=== PATIENT | female | born 1960 | race Hispanic/Latino ===

== ENCOUNTER → 2023-11-08 | Outpatient (CLI) | payer BC | END | disposition home or self-care (01) | LOC: RAH 12:00 | PROVIDERS: ATTEND Internal Medicine Cardiovascular Disease | DX: R06.02 Shortness of breath (principal) | CPT/HCPCS: 93306 ==

== ENCOUNTER 2023-11-26 11:33 | Inpatient (IN) | payer BC ==
[2023-11-26] VITALS (35 sets, daily range): BP systolic 95–178; BP diastolic 37–116; PULSE 59–105; RESP 18–36; TEMP 98.9–99.9; O2SAT 96–98
[~2023-11-26] VITALS: Ht 152.4 cm; Wt 151.0 kg
[2023-11-26] MEDS: levoFLOXacin 500 MG/D5W 100 ML 100 ML IV ONE (11:53)
[2023-11-26] MEDS: 0.9%NACL 1000ML 1,365 ML IV ONE (11:53)
[2023-11-26 12:06] LABS: BASOPHILS # (AUTO) 0.05 K/uL (0.00-0.20); BASOPHILS % (AUTO) 0.3 % (0.0-5.0); EOSINOPHILS # (AUTO) 0.05 K/uL (0.00-0.70); EOSINOPHILS % (AUTO) 0.3 % (0.0-8.0); HEMATOCRIT 30.7 % (36-48); IMMATURE GRANULOCYTE ABSOLUTE 0.26 K/uL (0-1); LYMPHOCYTES # (AUTO) 0.3 K/uL (1.0-4.8); LYMPHOCYTES % (AUTO) 1.8 % (21.0-51.0); MEAN CORPUSCULAR HEMOGLOBIN 25.1 pg (27.0-33.0); MEAN CORPUSCULAR HGB CONC 29.3 g/dL (32.0-36.0); MEAN CORPUSCULAR VOLUME 85.5 fL (79-99); MONOCYTES # (AUTO) 0.1 K/uL (0.1-1.0); MONOCYTES % (AUTO) 0.4 % (3.0-13.0); NEUTROPHILS # (AUTO) 18.6 K/uL (1.8-7.7); NEUTROPHILS % (AUTO) 95.9 % (40.0-77.0); PLATELET COUNT (AUTO) 222 K/uL (130-400); RED BLOOD CELL COUNT(AUTO) 3.59 MIL/uL (4.00-5.50); RED CELL DISTRIBUTION WIDTH 18.5 % (11.0-15.5); WHITE BLOOD COUNT (AUTO) 19.4 K/uL (4.8-10.8)
[2023-11-26 12:32] LABS: COVID19 (SARS ANTIGEN RAPID) PRESUMPTIVE NEGATIVE (NEGATIVE); INFLUENZA TYPE A Negative For Type A (NEGATIVE); INFLUENZA TYPE B Negative For Type B (NEGATIVE)
[2023-11-26] MEDS: NOREPINEPHRIN 4MG/NS 250ML 250 ML IV SCH (12:32)
[2023-11-26 12:34] LABS: CREATININE 3.6 mg/dL (0.5-1.0)
[2023-11-26 13:01] LABS: APPEARANCE,URINE CLEAR (CLEAR); BILIRUBIN,URINE NEGATIVE (NEGATIVE); COLOR,URINE YELLOW (YELLOW); GLUCOSE, URINE (UA) NEGATIVE (NEGATIVE); KETONES,URINE NEGATIVE (NEGATIVE); LEUKOCYTE ESTERASE ,URINE LARGE Leu/uL (NEGATIVE); NITRATE,URINE NEGATIVE (NEGATIVE); OCCULT BLOOD,URINE LARGE (NEGATIVE); PROTEIN,URINE 100 mg/dL (NEGATIVE); UROBILINOGEN,URINE 0.2 mg/dL (0.2-1.0)
[2023-11-26] MEDS: PoTASSium chl 10% ELIXIR 20MEQ 20 MEQ/15 ML UDCUP PO ONE (13:02)
[2023-11-26] MEDS: PoTASSium chloRIDE 20MEQ/100ML 100 ML IV ONE (13:03)
[2023-11-26] MEDS: fluCONazole 200 MG/NS 100 ML IV ONE (13:03)
[2023-11-26 13:06] LABS: ADD UA MICROSCOPIC YES
[2023-11-26 13:07] LABS: BACTERIA,URINE Moderate /HPF (None Seen); WBC,URINE TNTC /HPF (0-1)
[2023-11-26] MEDS: MEROPENEM 500 MG in 0.9%NACL 100ML 100 ML IV SCH (13:50)
[2023-11-26] MEDS: MEROPENEM 500 MG VIAL ONE (14:22)
[2023-11-26] MEDS ORDERED: MEROPENEM 500 MG VIAL IV SCH (14:30)
[2023-11-26] MEDS ORDERED: morPHINE 2 MG SYG IV PRN (14:30)
[2023-11-26] MEDS ORDERED: 0.9%NACL 1000ML 1,000 ML IV SCH (14:30)
[2023-11-26] MEDS ORDERED: acetaMINOPHEN 325 MG TAB PO PRN ×3 (14:30→15:30)
[2023-11-26 15:25] LABS: ABG BASE EXCESS -12.4 mmol/L (-2.0-3.0); ABG PCO2 25 mmHg (32-45); ABG PH 7.299 (7.350-7.450); DEVICE COMMENT RR MIKE; PO2, ARTERIAL BG 87.9 mmHg (83.0-108.0); VENT MODE, BG ROOM AIR (ROOM AIR)
[2023-11-26] MEDS ORDERED: ondanSETRON 4MG INJ IVP PRN (15:30)
[2023-11-26] MEDS: LACTATED RINGERS 1000ML 1,000 ML IV SCH (17:40)
[2023-11-26] MEDS: HEParin 5,000 UNIT VIAL SQ SCH (17:41)
[2023-11-26] MEDS: acetaMINOPHEN 325 MG TAB PO PRN (17:59)
[2023-11-26 18:49] LABS: ALBUMIN 1.7 g/dL (3.5-5.0); BILIRUBIN,TOTAL 0.4 mg/dL (0.2-1.0); CREATININE 3.3 mg/dL (0.5-1.0)
[2023-11-26 18:51] LABS: POTASSIUM 2.5 mmol/L (3.5-5.1)
[2023-11-26] MEDS: NOREPINEPHRINE BITARTRATE 32 MG in 0.9% NACL 250ML 250 ML IV SCH (19:20)
[2023-11-26] MEDS ORDERED: MELATONIN 5 MG TABLET PO PRN (19:30)
[2023-11-26] MEDS: FAMOTIDINE 20MG TAB PO SCH (19:55)
[2023-11-26] MEDS: ondanSETRON 4MG INJ IVP ONE (19:55)
[2023-11-26] MEDS: PoTASSium chloRIDE 20MEQ ER 20 MEQ ERTAB PO ONE ×2 (19:56→22:59)
[2023-11-26] MEDS: PoTASSium chloRIDE 10MEQ/100ML 100 ML IV ONE (19:56)
[2023-11-26] MEDS: MAGNESIUM 2GM PREMIX 50ML 50 ML IV SCH (19:57)
[2023-11-26 22:05] LABS: CREATININE 3.4 mg/dL (0.5-1.0); MAGNESIUM 1.5 mg/dL (1.80-2.40)
[2023-11-26 22:06] LABS: POTASSIUM 2.9 mmol/L (3.5-5.1)
[2023-11-26] MEDS ORDERED: SODI650T PO (22:40)
[2023-11-26] MEDS ORDERED: LEVO75CA5 PO (22:40)
[2023-11-26] MEDS ORDERED: GABA-529 PO (22:40)
[2023-11-26] MEDS ORDERED: DIPH-1150 PO (22:40)
[2023-11-26] MEDS ORDERED: ROPI2TAB53 PO (22:40)
[2023-11-26] MEDS ORDERED: FE F1CAP33 PO (22:40)
[2023-11-26] MEDS ORDERED: ESCI-8 PO (22:40)
[2023-11-27] VITALS (76 sets, daily range): BP systolic 92–147; BP diastolic 35–69; PULSE 55–86; RESP 19–40; TEMP 98.2–99.2; O2SAT 97–99
[2023-11-27 04:36] LABS: BASOPHILS # (AUTO) 0.12 K/uL (0.00-0.20); BASOPHILS % (AUTO) 0.3 % (0.0-5.0); EOSINOPHILS # (AUTO) 0.09 K/uL (0.00-0.70); EOSINOPHILS % (AUTO) 0.2 % (0.0-8.0); HEMATOCRIT 35.8 % (36-48); IMMATURE GRANULOCYTE ABSOLUTE 0.89 K/uL (0-1); LYMPHOCYTES # (AUTO) 0.9 K/uL (1.0-4.8); LYMPHOCYTES % (AUTO) 2.4 % (21.0-51.0); MEAN CORPUSCULAR HEMOGLOBIN 25.4 pg (27.0-33.0); MEAN CORPUSCULAR HGB CONC 30.2 g/dL (32.0-36.0); MEAN CORPUSCULAR VOLUME 84.2 fL (79-99); MONOCYTES # (AUTO) 0.8 K/uL (0.1-1.0); MONOCYTES % (AUTO) 2.1 % (3.0-13.0); NEUTROPHILS # (AUTO) 33.4 K/uL (1.8-7.7); NEUTROPHILS % (AUTO) 92.5 % (40.0-77.0); PLATELET COUNT (AUTO) 273 K/uL (130-400); RED BLOOD CELL COUNT(AUTO) 4.25 MIL/uL (4.00-5.50); RED CELL DISTRIBUTION WIDTH 18.7 % (11.0-15.5)
[2023-11-27 04:46] LABS: WHITE BLOOD COUNT (AUTO) 36.1 K/uL (4.8-10.8)
[2023-11-27 04:57] LABS: % IRON SATURATION 5.8 % (22-44); ALBUMIN 1.6 g/dL (3.5-5.0); BILIRUBIN,TOTAL 0.3 mg/dL (0.2-1.0); CREATININE 3.4 mg/dL (0.5-1.0); PHOSPHORUS 3.2 mg/dL (2.5-4.9)
[2023-11-27 05:22] LABS: POTASSIUM 2.9 mmol/L (3.5-5.1)
[2023-11-27] MEDS: PoTASSium chloRIDE 10MEQ/100ML 100 ML IV ONE (06:18)
[2023-11-27] MEDS: PoTASSium chloRIDE 20MEQ ER 20 MEQ ERTAB PO ONE (06:18)
[2023-11-27 06:27] LABS: LYMPHOCYTES % (MANUAL) 3 % (22-44); MONOCYTES % (MANUAL) 7 % (2-9); SEGMENTED NEUTROPHILS % 90 % (40-70); TOTAL CELLS COUNTED 100
[2023-11-27 06:28] LABS: MAN.DIFF COMMENT-IMPRESSION MANUAL DIFFERENTIAL; PLATELET MORPHOLOGY COMMENT ADEQUATE; WBC MORPHOLOGY NORMAL
[2023-11-27] MEDS ORDERED: ENOXAPARIN SODIUM 30 MG/0.3 ML SQ SCH (09:00)
[2023-11-27] MEDS: DOXYCYCLINE 100MG+NS 250ML 250 ML IV SCH (09:38)
[2023-11-27] MEDS: PoTASSium chloRIDE 20MEQ ER 20 MEQ ERTAB PO SCH (09:38)
[2023-11-27] MEDS: PANTOPrazole 40 MG/VIAL IVP SCH (09:40)
[2023-11-27] MEDS ORDERED: COMPOUND IV MISC 1 EACH IVSOLN MISC PRN (10:00)
[2023-11-27 10:31] LABS: CREATININE 3.5 mg/dL (0.5-1.0); POTASSIUM 3.5 mmol/L (3.5-5.1)
[2023-11-27] MEDS: EPOETIN ALFA-EPBX (NON-ESRD) 10,000 UNIT/ML VIAL SQ ONE (10:45)
[2023-11-27] MEDS: SODIUM BICARB 8.4% 50ML SYRING 150 MEQ in DEXTROSE 5%-WATER 1,000 ML IVP SCH (10:45)
[2023-11-27] MEDS: IRON sUCROse COMPLEX 300 MG in 0.9% NACL 250ML 250 ML IV ONE (11:36)
[2023-11-27 12:59] LABS: ABG BASE EXCESS -10.5 mmol/L (-2.0-3.0); ABG HCO3 13.6 mmol/L (21.0-28.0); ABG OXYGEN SATURATION 96.2 % (94.0-98.0); ABG PCO2 27 mmHg (32-45); ABG PH 7.327 (7.350-7.450); VENT MODE, BG RA (ROOM AIR)
[2023-11-27] MEDS: LACTATED RINGERS 1000ML 1,000 ML IV SCH (13:17)
[2023-11-27 15:26] LABS: CREATININE 3.4 mg/dL (0.5-1.0); POTASSIUM 3.4 mmol/L (3.5-5.1)
[2023-11-27] MEDS: MEROPENEM 500 MG in 0.9%NACL 100ML 100 ML IV SCH (15:55)
[2023-11-27] MEDS: GABApentin 100 MG CAPSULE PO PRN (16:35)
[2023-11-27] MEDS: LINEZOLID 600 MG/ISO-OSM 300 ML IV SCH (16:44)
[2023-11-27] MEDS: ondanSETRON 4MG INJ IV PRN (17:57)
[2023-11-27] MEDS: ropiNIRole HCL 1 MG TABLET PO SCH (20:51)
[2023-11-27] MEDS ORDERED: NON-FORMULARY MEDICATION 1 EACH (Ropinirole HCl 2 MG) PO SCH (21:00)
[2023-11-27 21:18] LABS: CREATININE 3.4 mg/dL (0.5-1.0); POTASSIUM 3.4 mmol/L (3.5-5.1)
[2023-11-28] VITALS (108 sets, daily range): BP systolic 87–143; BP diastolic 34–73; PULSE 51–67; RESP 12–93; TEMP 97.8–99.1; O2SAT 95–99
[2023-11-28] MEDS: PoTASSium chl 10% ELIXIR 20MEQ 20 MEQ/15 ML UDCUP PO ONE (03:21)
[2023-11-28 05:22] LABS: MEAN CORPUSCULAR HEMOGLOBIN 24.7 pg (27.0-33.0); MEAN CORPUSCULAR HGB CONC 29.4 g/dL (32.0-36.0); MEAN CORPUSCULAR VOLUME 84.2 fL (79-99); PLATELET COUNT (AUTO) 196 K/uL (130-400); RED BLOOD CELL COUNT(AUTO) 3.92 MIL/uL (4.00-5.50); RED CELL DISTRIBUTION WIDTH 18.9 % (11.0-15.5)
[2023-11-28 05:46] LABS: WHITE BLOOD COUNT (AUTO) 34.2 K/uL (4.8-10.8)
[2023-11-28 06:15] LABS: LYMPHOCYTES % (MANUAL) 2 % (22-44); MONOCYTES % (MANUAL) 1 % (2-9); SEGMENTED NEUTROPHILS % 97 % (40-70); TOTAL CELLS COUNTED 100
[2023-11-28 06:17] LABS: MAN.DIFF COMMENT-IMPRESSION MANUAL DIF; PLATELET MORPHOLOGY COMMENT ADEQUATE; WBC MORPHOLOGY NORMAL
[2023-11-28 06:50] LABS: ALBUMIN 1.4 g/dL (3.5-5.0); BILIRUBIN,TOTAL 0.3 mg/dL (0.2-1.0); CREATININE 3.5 mg/dL (0.5-1.0); MAGNESIUM 1.9 mg/dL (1.80-2.40); POTASSIUM 3.5 mmol/L (3.5-5.1); TOTAL PROTEIN, SERUM 5.6 g/dL (6.0-8.3)
[2023-11-28] MEDS: levoTHYROxine 75 MCG TABLET PO SCH (06:52)
[2023-11-28] MEDS ORDERED: NON-FORMULARY MEDICATION 1 EACH (Levothyroxine Sodium (Levothyroxine) 75 MCG) PO SCH (09:00)
[2023-11-28] MEDS ORDERED: polyETHYLene GLYCol 3350 17 GM POWD.PACK PO PRN (09:30)
[2023-11-28] MEDS: SIMETHICONE 80 MG TAB.CHEW PO PRN (10:30)
[2023-11-28] MEDS: tamSULOsin HCL 0.4 MG CAP.ER.24H PO SCH (10:38)
[2023-11-28] MEDS: miDODRine HCL 5 MG TABLET PO ONE (10:38)
[2023-11-28] MEDS ORDERED: DICYCLOMINE HCL 10 MG/5 ML ML PO ONE (11:00)
[2023-11-28] MEDS ORDERED: DICYCLOMINE 20MG (10MG/ML) AMP IM ONE (12:00)
[2023-11-28] MEDS: DICYCLOMINE HCL 20 MG TAB PO ONE (12:58)
[2023-11-28] MEDS: miDODRine HCL 5 MG TABLET PO SCH (14:39)
[2023-11-28 15:55] LABS: CREATININE 3.2 mg/dL (0.5-1.0)
[2023-11-28] MEDS: PoTASSium chloRIDE 20MEQ ER 20 MEQ ERTAB PO ONE (17:08)
[2023-11-28] MEDS: PoTASSium chloRIDE 10MEQ/100ML 100 ML IV PRN (17:13)
[2023-11-28] MEDS: metoCLOPRAmide 10 MG/2 ML VIAL IVP ONE (18:00)
[2023-11-28] MEDS: PoTASSium chloRIDE 20MEQ ER 20 MEQ ERTAB PO PRN (20:18)
[2023-11-28 20:41] LABS: CREATININE 3.3 mg/dL (0.5-1.0); POTASSIUM 3.2 mmol/L (3.5-5.1)
[2023-11-29] VITALS (113 sets, daily range): BP systolic 86–153; BP diastolic 40–111; PULSE 46–88; RESP 17–41; TEMP 98.1–99; O2SAT 91–100
[2023-11-29 03:53] LABS: BASOPHILS # (AUTO) 0.07 K/uL (0.00-0.20); BASOPHILS % (AUTO) 0.3 % (0.0-5.0); EOSINOPHILS # (AUTO) 0.58 K/uL (0.00-0.70); EOSINOPHILS % (AUTO) 2.1 % (0.0-8.0); HEMATOCRIT 29.6 % (36-48); IMMATURE GRANULOCYTE ABSOLUTE 1.42 K/uL (0-1); LYMPHOCYTES # (AUTO) 0.7 K/uL (1.0-4.8); LYMPHOCYTES % (AUTO) 2.6 % (21.0-51.0); MEAN CORPUSCULAR HEMOGLOBIN 24.6 pg (27.0-33.0); MEAN CORPUSCULAR HGB CONC 30.1 g/dL (32.0-36.0); MEAN CORPUSCULAR VOLUME 81.8 fL (79-99); MONOCYTES # (AUTO) 0.6 K/uL (0.1-1.0); MONOCYTES % (AUTO) 2.3 % (3.0-13.0); NEUTROPHILS # (AUTO) 23.8 K/uL (1.8-7.7); NEUTROPHILS % (AUTO) 87.5 % (40.0-77.0); PLATELET COUNT (AUTO) 164 K/uL (130-400); RED BLOOD CELL COUNT(AUTO) 3.62 MIL/uL (4.00-5.50); RED CELL DISTRIBUTION WIDTH 18.7 % (11.0-15.5); WHITE BLOOD COUNT (AUTO) 27.3 K/uL (4.8-10.8)
[2023-11-29 04:18] LABS: ALBUMIN 1.3 g/dL (3.5-5.0); BILIRUBIN,TOTAL 0.3 mg/dL (0.2-1.0); CREATININE 3.3 mg/dL (0.5-1.0); MAGNESIUM 2.3 mg/dL (1.80-2.40); PHOSPHORUS 2.4 mg/dL (2.5-4.9); POTASSIUM 3.5 mmol/L (3.5-5.1); THYROID STIMULATING HORMONE 0.75 uIU/mL (0.36-3.74); TOTAL PROTEIN, SERUM 5.4 g/dL (6.0-8.3)
[2023-11-29] MEDS: LACTATED RINGERS 1000ML IV ONE (09:37)
[2023-11-29] MEDS ORDERED: dexaMETHasone SOD PHOSPHATE 10MG/ML 1ML VIAL ONE ×2 (13:37→15:41)
[2023-11-29] MEDS ORDERED: LIDOCAINE HCL MPF 1% 5ML VIAL ONE (13:37)
[2023-11-29] MEDS ORDERED: rocuRONium bROMide 10MG/1ML 5ML VL ONE (13:38)
[2023-11-29] MEDS ORDERED: SUCCINYLCHOLINE CHLORIDE 20 MG/ML 10 ML VIAL ONE (13:38)
[2023-11-29] MEDS ORDERED: ondanSETRON 4MG INJ ONE ×2 (13:38→15:41)
[2023-11-29] MEDS ORDERED: MIDAZOLAM HCL 1 MG/ML 2ML VIAL ONE (13:38)
[2023-11-29] MEDS ORDERED: FENTanyl CITRate PF 50 MCG/1 ML 2ML VIAL ONE (13:39)
[2023-11-29] MEDS ORDERED: proPOFol 10 MG/ML 20ML VIAL IV ONE (13:39)
[2023-11-29] MEDS: MEROPENEM 500 MG VIAL IVPB ONE (15:35)
[2023-11-29] MEDS ORDERED: NEOSTIGMINE METHYLSULFATE 1MG/ML IV ONE (15:42)
[2023-11-29] MEDS ORDERED: GLYCOPYRROLATE 0.2 MG/ML 5 ML VIAL ONE (15:42)
[2023-11-29] MEDS ORDERED: IOHEXOL-350 50ML VIAL IV ONE (16:34)
[2023-11-29] MEDS: furoSEMIDE 20MG VIAL IV ONE (17:02)
[2023-11-29] MEDS: Solu-medROL 125MG VIAL IVP ONE (17:02)
[2023-11-29 17:35] LABS: POTASSIUM 2.8 mmol/L (3.5-5.1)
[2023-11-29] MEDS: Solu-medROL 40MG VIAL IVP SCH (20:22)
[2023-11-29 20:54] LABS: POTASSIUM 3.1 mmol/L (3.5-5.1)
[2023-11-30] VITALS (106 sets, daily range): BP systolic 65–185; BP diastolic 26–113; PULSE 37–95; RESP 13–100; TEMP 98.2–98.5; O2SAT 92–94
[2023-11-30 04:57] LABS: BASOPHILS # (AUTO) 0.02 K/uL (0.00-0.20); BASOPHILS % (AUTO) 0.1 % (0.0-5.0); HEMATOCRIT 30.8 % (36-48); LYMPHOCYTES # (AUTO) 0.5 K/uL (1.0-4.8); LYMPHOCYTES % (AUTO) 3.4 % (21.0-51.0); MEAN CORPUSCULAR HGB CONC 29.5 g/dL (32.0-36.0); MEAN CORPUSCULAR VOLUME 84.6 fL (79-99); MONOCYTES # (AUTO) 0.1 K/uL (0.1-1.0); MONOCYTES % (AUTO) 0.7 % (3.0-13.0); NEUTROPHILS # (AUTO) 14.1 K/uL (1.8-7.7); NEUTROPHILS % (AUTO) 94.5 % (40.0-77.0); PLATELET COUNT (AUTO) 178 K/uL (130-400); RED BLOOD CELL COUNT(AUTO) 3.64 MIL/uL (4.00-5.50); WHITE BLOOD COUNT (AUTO) 14.9 K/uL (4.8-10.8)
[2023-11-30 05:15] LABS: ALBUMIN 1.4 g/dL (3.5-5.0); BILIRUBIN,TOTAL 0.3 mg/dL (0.2-1.0); PHOSPHORUS 3.6 mg/dL (2.5-4.9); POTASSIUM 3.1 mmol/L (3.5-5.1); TOTAL PROTEIN, SERUM 5.6 g/dL (6.0-8.3)
[2023-11-30 05:26] LABS: MAGNESIUM 1.9 mg/dL (1.80-2.40)
[2023-11-30 12:38] LABS: INR 1.04 (0.85-1.15); PROTHROMBIN TIME 11.2 SEC (9.6-11.6)
[2023-11-30] MEDS: DOPamine 800MG/D5 250ML 250 ML IV SCH (16:57)
[2023-11-30] MEDS: hydroCORTisone SOD SUCCINATE 100 MG/2 ML VIAL IV SCH (17:00)
[2023-11-30] MEDS: LACTATED RINGERS 1000ML 1,000 ML IV SCH (17:01)
[2023-11-30] MEDS: DOXYCYCLINE HYCLATE 100 MG TABLET PO SCH (21:18)
[2023-12-01] VITALS (75 sets, daily range): BP systolic 48–178; BP diastolic 32–173; PULSE 42–81; RESP 11–42; TEMP 98.1–98.9; O2SAT 96–100
[2023-12-01 04:09] LABS: BASOPHILS # (AUTO) 0.02 K/uL (0.00-0.20); BASOPHILS % (AUTO) 0.1 % (0.0-5.0); HEMATOCRIT 33.7 % (36-48); IMMATURE GRANULOCYTE ABSOLUTE 0.32 K/uL (0-1); LYMPHOCYTES # (AUTO) 0.6 K/uL (1.0-4.8); LYMPHOCYTES % (AUTO) 3.8 % (21.0-51.0); MEAN CORPUSCULAR HEMOGLOBIN 24.3 pg (27.0-33.0); MEAN CORPUSCULAR HGB CONC 29.1 g/dL (32.0-36.0); MEAN CORPUSCULAR VOLUME 83.4 fL (79-99); MONOCYTES # (AUTO) 0.3 K/uL (0.1-1.0); MONOCYTES % (AUTO) 2.2 % (3.0-13.0); NEUTROPHILS # (AUTO) 13.1 K/uL (1.8-7.7); NEUTROPHILS % (AUTO) 91.7 % (40.0-77.0); NUCLEATED RED BLOOD CELLS 0.1 % (0.0-0.19); PLATELET COUNT (AUTO) 226 K/uL (130-400); RED BLOOD CELL COUNT(AUTO) 4.04 MIL/uL (4.00-5.50); RED CELL DISTRIBUTION WIDTH 18.7 % (11.0-15.5); WHITE BLOOD COUNT (AUTO) 14.3 K/uL (4.8-10.8)
[2023-12-01 04:46] LABS: ALBUMIN 1.6 g/dL (3.5-5.0); BILIRUBIN,TOTAL 0.2 mg/dL (0.2-1.0); CREATININE 2.5 mg/dL (0.5-1.0); MAGNESIUM 1.8 mg/dL (1.80-2.40); PHOSPHORUS 3.2 mg/dL (2.5-4.9); TOTAL PROTEIN, SERUM 5.4 g/dL (6.0-8.3)
[2023-12-01 04:47] LABS: POTASSIUM 2.9 mmol/L (3.5-5.1)
[2023-12-01 11:42] LABS: CREATININE 2.4 mg/dL (0.5-1.0)
[2023-12-01 11:50] LABS: POTASSIUM 2.5 mmol/L (3.5-5.1)
[2023-12-01] MEDS: PROMETHAZINE HCL 6.25 MG/5 ML PO SCH (11:54)
[2023-12-01 14:03] LABS: MAGNESIUM 2.3 mg/dL (1.80-2.40); POTASSIUM 3.1 mmol/L (3.5-5.1)
[2023-12-02] VITALS (106 sets, daily range): BP systolic 66–147; BP diastolic 29–88; PULSE 48–109; RESP 13–30; TEMP 97–98.5; O2SAT 95–99
[2023-12-02 04:33] LABS: HEMATOCRIT 36.5 % (36-48); MEAN CORPUSCULAR HEMOGLOBIN 24.3 pg (27.0-33.0); MEAN CORPUSCULAR HGB CONC 28.2 g/dL (32.0-36.0); MEAN CORPUSCULAR VOLUME 86.1 fL (79-99); RED BLOOD CELL COUNT(AUTO) 4.24 MIL/uL (4.00-5.50); RED CELL DISTRIBUTION WIDTH 17.8 % (11.0-15.5); WHITE BLOOD COUNT (AUTO) 13.8 K/uL (4.8-10.8)
[2023-12-02 04:53] LABS: ALBUMIN 1.6 g/dL (3.5-5.0); BILIRUBIN,TOTAL 0.3 mg/dL (0.2-1.0); CREATININE 2.2 mg/dL (0.5-1.0); MAGNESIUM 1.9 mg/dL (1.80-2.40); POTASSIUM 3.2 mmol/L (3.5-5.1); TOTAL PROTEIN, SERUM 5.8 g/dL (6.0-8.3)
[2023-12-02] MEDS ORDERED: miDODRine HCL 5 MG TABLET PO SCH (14:00)
[2023-12-03] VITALS (98 sets, daily range): BP systolic 74–153; BP diastolic 35–72; PULSE 44–89; RESP 11–63; TEMP 97.5–97.9; O2SAT 98–100
[2023-12-03 03:54] LABS: BASOPHILS # (AUTO) 0.02 K/uL (0.00-0.20); BASOPHILS % (AUTO) 0.2 % (0.0-5.0); EOSINOPHILS # (AUTO) 0.04 K/uL (0.00-0.70); EOSINOPHILS % (AUTO) 0.4 % (0.0-8.0); HEMATOCRIT 35.2 % (36-48); IMMATURE GRANULOCYTE ABSOLUTE 0.46 K/uL (0-1); LYMPHOCYTES # (AUTO) 0.4 K/uL (1.0-4.8); MEAN CORPUSCULAR HEMOGLOBIN 24.9 pg (27.0-33.0); MEAN CORPUSCULAR HGB CONC 28.4 g/dL (32.0-36.0); MEAN CORPUSCULAR VOLUME 87.6 fL (79-99); MONOCYTES # (AUTO) 0.2 K/uL (0.1-1.0); MONOCYTES % (AUTO) 2.3 % (3.0-13.0); NEUTROPHILS # (AUTO) 8.1 K/uL (1.8-7.7); NEUTROPHILS % (AUTO) 88.1 % (40.0-77.0); PLATELET COUNT (AUTO) 171 K/uL (130-400); RED BLOOD CELL COUNT(AUTO) 4.02 MIL/uL (4.00-5.50); RED CELL DISTRIBUTION WIDTH 17.2 % (11.0-15.5); WHITE BLOOD COUNT (AUTO) 9.2 K/uL (4.8-10.8)
[2023-12-03 04:15] LABS: CREATININE 1.3 mg/dL (0.5-1.0)
[2023-12-03 04:19] LABS: POTASSIUM 2.5 mmol/L (3.5-5.1)
[2023-12-03] MEDS: PoTASSium chloRIDE 10MEQ SR 10 MEQ/TAB TAB.SR.24H PO PRN (04:26)
[2023-12-03 08:30] LABS: HEMOGLOBIN A1C 5.8 % (4.0-6.0)
[2023-12-03] MEDS: PoTASSium chloRIDE 20MEQ ER 20 MEQ ERTAB PO SCH (08:43)
[2023-12-03] MEDS ORDERED: 0.9%NACL 1000ML 1,000 ML IV SCH (09:00)
[2023-12-03] MEDS: INSULIN humuLIN R 100 UNIT/ML 3ML SQ SCH (12:18)
[2023-12-03 12:42] LABS: MAGNESIUM 1.8 mg/dL (1.80-2.40)
[2023-12-03 12:44] LABS: POTASSIUM 2.8 mmol/L (3.5-5.1)
[2023-12-03 14:11] LABS: ATYPICAL P-ANCA AB <1:20 titer (Neg:<1:20); CYTOPLASMIC (C-ANCA) AB, IGG <1:20 titer (Neg:<1:20)
[2023-12-03] MEDS: LIDOCAINE HCL-MPF 1% 2ML VIAL ONE ×2 (15:20→15:39)
[2023-12-03] MEDS: LIDOCAINE HCL-MPF 1% 2ML VIAL IV ONE (15:39)
[2023-12-03] MEDS: FAMOTIDINE 20MG TAB PO SCH (20:02)
[2023-12-03] MEDS: PoTASSium chl 10% ELIXIR 20MEQ 20 MEQ/15 ML UDCUP PO PRN (20:02)
[2023-12-04] VITALS (52 sets, daily range): BP systolic 68–173; BP diastolic 29–117; PULSE 43–75; RESP 14–46; TEMP 97.8–98.1; O2SAT 97–98
[2023-12-04 04:10] LABS: BASOPHILS # (AUTO) 0.01 K/uL (0.00-0.20); BASOPHILS % (AUTO) 0.1 % (0.0-5.0); EOSINOPHILS # (AUTO) 0.03 K/uL (0.00-0.70); EOSINOPHILS % (AUTO) 0.4 % (0.0-8.0); HEMATOCRIT 31.4 % (36-48); IMMATURE GRANULOCYTE ABSOLUTE 0.44 K/uL (0-1); LYMPHOCYTES # (AUTO) 0.5 K/uL (1.0-4.8); MEAN CORPUSCULAR HEMOGLOBIN 24.4 pg (27.0-33.0); MEAN CORPUSCULAR HGB CONC 28.3 g/dL (32.0-36.0); MONOCYTES # (AUTO) 0.3 K/uL (0.1-1.0); MONOCYTES % (AUTO) 3.2 % (3.0-13.0); NEUTROPHILS # (AUTO) 6.9 K/uL (1.8-7.7); NEUTROPHILS % (AUTO) 84.9 % (40.0-77.0); PLATELET COUNT (AUTO) 167 K/uL (130-400); RED BLOOD CELL COUNT(AUTO) 3.65 MIL/uL (4.00-5.50); RED CELL DISTRIBUTION WIDTH 16.8 % (11.0-15.5); WHITE BLOOD COUNT (AUTO) 8.1 K/uL (4.8-10.8)
[2023-12-04 04:22] LABS: CREATININE 1.8 mg/dL (0.5-1.0); POTASSIUM 3.5 mmol/L (3.5-5.1)
[2023-12-04] MEDS: miDODRine HCL 5 MG TABLET PO SCH (09:24)
[2023-12-04] MEDS: NOREPINEPHRIN 4MG/NS 250ML 250 ML IV SCH (09:27)
[2023-12-04 09:54] LABS: ABG BASE EXCESS 2.7 mmol/L (-2.0-3.0); ABG OXYGEN SATURATION 95.9 % (94.0-98.0); ABG PCO2 36 mmHg (32-45); ABG PH 7.476 (7.350-7.450); PO2, ARTERIAL BG 74.4 mmHg (83.0-108.0); VENT MODE, BG 2 L NC (ROOM AIR)
[2023-12-04 09:59] LABS: ABG OXYGEN SATURATION 62.3 % (94.0-98.0); BASE EXCESS,VENOUS BLOOD GAS 1.3 (-2.0-3.0); HCO3,VENOUS BLOOD GAS 26.3 (22.0-29.0); PCO2,VENOUS BLOOD GAS 44 (38-54); PH,VENOUS BLOOD GAS 7.397 (7.320-7.430); PO2,VENOUS BLOOD GAS 33.4 mmHg (23.0-48.0); VENT MODE, BG 2 L NC (ROOM AIR)
== END 2023-12-04 17:10 | DRG 853 ==
LOC: EDBD 11:33 → EDSEX 11:33 → EDH 11:33 → EDHIP 14:09 → 2BH 16:17 → 2CH 11-29 18:56
PROVIDERS: ADMIT Internal Medicine; ATTEND Internal Medicine
PROC: 02HV33Z Insertion of Infusion Device into Superior Vena Cava, Percutaneous Approach (ICD-10-PCS; 2023-11-26)
PROC: B548ZZA Ultrasonography of Superior Vena Cava, Guidance (ICD-10-PCS; 2023-11-26)
PROC: 0T788DZ Dilation of Bilateral Ureters with Intraluminal Device, Via Natural or Artificial Opening Endoscopic (ICD-10-PCS; principal; 2023-11-29 15:14)
PROC: 4A133B1 Monitoring of Arterial Pressure, Peripheral, Percutaneous Approach (ICD-10-PCS; 2023-12-03)
PROC: 4A133J1 Monitoring of Arterial Pulse, Peripheral, Percutaneous Approach (ICD-10-PCS; 2023-12-03)
DX: A41.50 Gram-negative sepsis, unspecified (principal); N17.0 Acute kidney failure with tubular necrosis; R65.21 Severe sepsis with septic shock; L97.919 Non-pressure chronic ulcer of unspecified part of right lower leg with unspecified severity; E87.20 Acidosis, unspecified; Z68.43 Body mass index [BMI] 50.0-59.9, adult; N13.6 Pyonephrosis; L03.115 Cellulitis of right lower limb; N18.4 Chronic kidney disease, stage 4 (severe); R18.8 Other ascites; Z68.44 Body mass index [BMI] 60.0-69.9, adult; D64.9 Anemia, unspecified; E03.9 Hypothyroidism, unspecified; F32.A Depression, unspecified; G25.81 Restless legs syndrome; I87.2 Venous insufficiency (chronic) (peripheral); K52.9 Noninfective gastroenteritis and colitis, unspecified; E66.01 Morbid (severe) obesity due to excess calories; E87.6 Hypokalemia; J98.4 Other disorders of lung; I83.018 Varicose veins of right lower extremity with ulcer other part of lower leg; B37.31 Acute candidiasis of vulva and vagina; F41.9 Anxiety disorder, unspecified; B96.20 Unspecified Escherichia coli [E. coli] as the cause of diseases classified elsewhere; G47.33 Obstructive sleep apnea (adult) (pediatric); I44.1 Atrioventricular block, second degree; E83.51 Hypocalcemia; I12.9 Hypertensive chronic kidney disease with stage 1 through stage 4 chronic kidney disease, or unspecified chronic kidney disease; E11.22 Type 2 diabetes mellitus with diabetic chronic kidney disease; E11.65 Type 2 diabetes mellitus with hyperglycemia; B95.2 Enterococcus as the cause of diseases classified elsewhere; B96.5 Pseudomonas (aeruginosa) (mallei) (pseudomallei) as the cause of diseases classified elsewhere; E86.0 Dehydration; I51.7 Cardiomegaly; E87.5 Hyperkalemia; K42.9 Umbilical hernia without obstruction or gangrene; K76.0 Fatty (change of) liver, not elsewhere classified; R62.7 Adult failure to thrive; Z83.3 Family history of diabetes mellitus; Z82.49 Family history of ischemic heart disease and other diseases of the circulatory system; Z87.442 Personal history of urinary calculi; Z88.0 Allergy status to penicillin
CPT/HCPCS: 36415; 36569; 36600; 71045; 74018; 74176; 74420; 76700; 76770; 80048; 80053; 81001; 82010; 82435; 82533; 82550; 82803; 82947; 82948; 83036; 83540; 83550; 83605; 83735; 83880; 84100; 84132; 84145; 84295; 84443; 84484; 85025; 85027; 85610; 86160; 86255; 87040; 87046; 87070; 87076; 87086; 87186; 87426; 87804; 93005; 93970; 96365; 96375; 99291; A4314; A4354; A4355; A6248; C1751; C1758; C1894; C2617; G0378; J0330; J0500; J1100; J1265; J1450; J1644; J1720; J1756; J1815; J1940; J1956; J2020; J2185; J2250; J2405; J2470; J2704; J2710; J2765; J2919; J3010; J3475; J3480; J3490; J7030; J7040; J7050; J7070; J7120; Q0169; Q9967; A4358; A4600; C1769; Q5106